=== PATIENT | female | born 1935 | race American Indian/Alaskan Native ===

== ENCOUNTER 2022-02-09 11:42 | Outpatient (CLI) | payer MEDICARE ==
--- NOTE | 2022-02-09 15:28 | XRay Report ---
XR knees standing AP Bilateral INDICATION / CLINICAL INFORMATION: M17.12 OSTEOARTHRITIS. COMPARISON: None available. FINDINGS: BONES/JOINT(S): No acute fracture or subluxation. Previous right knee arthroplasty. 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 SOFT TISSUES: No significant abnormality. ADDITIONAL FINDINGS: None. Signer Name: Sumeet Barcenas MD Signed: 02/09/2022 3:24 PM Workstation Name: [id number]
--- NOTE | 2022-02-09 15:39 | XRay Report ---
XR spine lumbosacral 2-3V INDICATION / CLINICAL INFORMATION: S39.012A LUMBAR STRAIN. COMPARISON: None available. FINDINGS: BONES/JOINT(S): No acute fracture or subluxation. Moderate generalized spondylosis with anterior and lateral osteophytes at multiple levels. Grade 1 anterolisthesis at L4-5. No abnormal motion with flex ion or extension. SOFT TISSUES: No significant abnormality. ADDITIONAL FINDINGS: None. Signer Name: Sumeet Barcenas MD Signed: 02/09/2022 3:34 PM Workstation Name: [email or web address]
== END 2022-02-09 11:43 | disposition home or self-care (01) ==
LOC: XRAY 11:42
PROVIDERS: ATTEND Orthopaedic Surgery Sports Medicine
DX: S39.012A Strain of muscle, fascia and tendon of lower back, initial encounter (principal); M43.16 Spondylolisthesis, lumbar region; M25.78 Osteophyte, vertebrae; M17.12 Unilateral primary osteoarthritis, left knee; Z96.651 Presence of right artificial knee joint; X58.XXXA Exposure to other specified factors, initial encounter; Y93.89 Activity, other specified; Y92.89 Other specified places as the place of occurrence of the external cause; Y99.8 Other external cause status
CPT/HCPCS: 72100; 73565